=== PATIENT | female | born 1975 | race Caucasian/White ===

== ENCOUNTER 2021-12-02 14:16 | Emergency (ER) | payer OTHER, SELFPAY ==
--- NOTE | ~2021-12-02 | XR_ITS ---
EXAMINATION: XR NASAL BONES CLINICAL INFORMATION: Nasal pain after injury. COMPARISON: None TECHNIQUE: 3 views of the nasal bones were obtained. FINDINGS: No definite displaced nasal bone fractures. Visualized paranasal sinuses appear clear. No unexpected radiopaque foreign bodies. XR/XR nasal bones min 3V IMPRESSION: No definite displaced nasal bone fractures.
[2021-12-02 15:35] VITALS: BP 116/78; PULSE 90; RESP 18; TEMP 37.1; O2SAT 96; BMI 24.7
--- NOTE | 2021-12-02 16:25 | ED_ITS ---
HPI - General Adult General Chief complaint: General Medical Stated complaint: L side pain Time Seen by Provider: 12/02/21 16:25 History of Present Illness HPI narrative: Patient with 2 complaints main complaint is pain in the left trapezius left side of the neck and left upper back as well as left lower back that is worse with movement, no injury associated, no numbness no weakness no tingling no radiation of pain no changes to bowel or bladder Second complaint is she fell and banged her nose many weeks ago and still has pain when she touches the bridges for nose and is requesting an x-ray she has no trouble breathing and denies any congestion or illness now Related Data Previous Rx's Medication Instructions Recorded acetaminophen 500 mg tablet 1,000 mg PO QID PRN #30 tab 12/02/21 cyclobenzaprine 5 mg tablet 5 mg PO TID PRN #14 tab 12/02/21 oxycodone 5 mg tablet 5 mg PO Q6H PRN #10 tab 12/02/21 Allergies Allergy/AdvReac Type Severity Reaction Status Date / Time ibuprofen [From MOTRIN] Allergy Intermediate ABD PAIN Verified 12/02/21 15:35 [employer] Allergy Intermediate ABD PAIN Uncoded 05/21/20 18:32 Review of Systems Review of Systems: Positive for nose pain and back pain Negatives are no fever no chills no dizziness no weakness no headache no difficulty breathing or swallowing no nose bleeding no congestion no neck pain no numbness weakness or tingling no chest pain no abdominal pain no vomiting no burning with urination no incontinence no changes to bowel or bladder no radiation of pain no rash Yes all other systems are reviewed and are negative PMFSH Past Medical History Source: nursing notes reviewed Medical History (Updated 12/02/21 @ 17:55 by SKY Rosado) Asthma Bipolar 1 disorder Brain cyst Depression Nerve pain Pinched nerve in neck Social History Social History Advance Directives: No Patient : No Physical Exam ED Vital Signs: Vital Signs - 24 hr 12/02/21 15:35 Temperature 98.7 F Pulse Rate 90 Respiratory Rate 18 Blood Pressure 116/78 Pulse Oximetry 96 BMI result Body Mass Index 24.7 General appearance no acute distress Head is normocephalic atraumatic The nose there is no septal hematoma there is no obvious deformity there is some mild tenderness to the bridge of the nose Pupils equal round reactive to light extraocular motions are intact No other tenderness to any facial bones The neck is supple Respiratory no distress Abdomen soft nontender The back had left-sided trapezius and subscapular tenderness as well as left- sided low back soft tissue tenderness there was no midline tenderness anywhere, pain is easily reproduced with movement, skin was normal, no CVA tenderness Extremities is full range of motion x4 Neuro motor is 5/5 x4 and sensation is intact and symmetrical in all extremities Course Course Course Narrative: Patient had a negative nasal bones x-ray and is breathing fine through her nose with no sign of any infection or congestion The back exam was consistent with soft tissue muscle pain and she is discharged with the muscle relaxer and pain reliever, no neurologic deficits or changes to bowel or bladder Discharge Plan Discharge Clinical Impression: Back pain, Nose pain Patient Disposition: Home, Self-Care Additional Instructions: X-ray of her nose did not show any broken bone Back pain is likely from strain muscles in her back so we are writing for muscle relaxer and pain killer Follow for both complaints with primary doctor Return any time if worse Prescriptions: New acetaminophen 500 mg tablet 1,000 mg PO QID PRN (Reason: pain) Qty: 30 0RF cyclobenzaprine 5 mg tablet 5 mg PO TID PRN (Reason: muscle spasm) Qty: 14 0RF Rx Instructions: This medication may cause drowsiness so no driving for 8 hours after taking oxycodone 5 mg tablet 5 mg PO Q6H PRN (Reason: pain) Qty: 10 0RF Rx Instructions: Narcotic, no driving for 6 hours after taking this medication
== END 2021-12-02 18:30 | disposition home or self-care (01) ==
PROVIDERS: Emergency Provider Internal Medicine
DX: M54.6 Pain in thoracic spine (principal); M54.50 Low back pain, unspecified; J34.89 Other specified disorders of nose and nasal sinuses
CPT/HCPCS: 70160; 99283

== ENCOUNTER 2021-12-21 17:41 | Emergency (ER) | payer OTHER, SELFPAY ==
--- NOTE | ~2021-12-21 | XR_ITS ---
EXAMINATION: XR NASAL BONES CLINICAL INFORMATION: No swelling. Walked into wall COMPARISON: 12/02/2021 TECHNIQUE: 3 views of the nasal bones were obtained. FINDINGS: There is a nondisplaced hairline fracture through the distal nasal bone. There is associated soft tissue swelling in this location. Visualized sinuses are well aerated and unremarkable. No other acute bony abnormality seen. XR/XR nasal bones min 3V IMPRESSION: Nondisplaced hairline fracture through the nasal bones
[2021-12-21 18:15] VITALS: BP 135/65; PULSE 104; RESP 20; TEMP 36.8; O2SAT 99; BMI 24.5
--- NOTE | 2021-12-21 20:50 | ED.WOUNDLAC ---
HPI - Wound/Laceration General Chief Complaint: Wound/Laceration Stated Complaint: ? nose is broken Time Seen by Provider: 12/21/21 20:50 Source: patient Mode of arrival: ambulatory Limitations: no limitations History of Present Illness HPI narrative: 46 y/o female presents to the ER for evaluation of a possible broken nose. She reports walking out of the [employer] when she accidentally walked into a glass wall. She had immediate pain and swelling of her nose as well as a bloody nose on the left side, which has since stopped. She also has a small laceration to the bridge of her nose. She is not on anticoagulation. She reports a history of broken nose in the past and thinks she may broken it again. She is unsure when her last tetanus shot was. Onset (ago): minute(s) Location: face Place: other (Mall) Patient tetanus UTD: No Context: accidental Associated symptoms: pain Treatments prior to arrival: cold therapy Related Data Previous Rx's Medication Instructions Recorded acetaminophen 500 mg tablet 1,000 mg PO QID PRN #30 tab 12/02/21 cyclobenzaprine 5 mg tablet 5 mg PO TID PRN #14 tab 12/02/21 oxycodone 5 mg tablet 5 mg PO Q6H PRN #10 tab 12/02/21 oxycodone 5 mg tablet 5 mg PO Q8H PRN #6 tab 12/21/21 Allergies Allergy/AdvReac Type Severity Reaction Status Date / Time ibuprofen [From MOTRIN] Allergy Intermediate ABD PAIN Verified 12/02/21 15:35 [employer] Allergy Intermediate ABD PAIN Uncoded 05/21/20 18:32 Review of Systems Review of Systems: Constitutional: No Fever, No Chills ENT/Mouth: No dental pain, +nose pain, No ear pain, No facial pain Eyes: No Eye Pain, No vision changes, no swelling Gastrointestinal: No Nausea, No Vomiting Musculoskeletal: No joint pain, No Myalgias Skin: + Skin Lesions, No rash Neuro: No Weakness, No Numbness, No Dizziness, No Headache Psych: + Anxiety/Panic, No Depression Heme/Lymph: + Bruising, No Lymphadenopathy PMFSH Past Medical History Medical History (Updated 12/21/21 @ 21:41 by SKY Ramos) Asthma Bipolar 1 disorder Brain cyst Depression Nerve pain Pinched nerve in neck Social History Social History Advance Directives: No Advance Directives Information Provided: No Physical Exam Vital Signs: Vital Signs: Last Vital Signs Temp 98.2 F 12/21/21 18:15 Pulse 104 H 12/21/21 18:15 Resp 20 12/21/21 18:15 BP 135/65 12/21/21 18:15 Pulse Ox 99 12/21/21 18:15 BMI result Body Mass Index 24.5 Appearance: Alert. Oriented X3. No acute distress. Eyes: Pupils equal, round and reactive to light. ENT: Nose has mild generalized swelling and early ecchymosis to the middle and superior aspect, there are 2 superficial abrasions on the bridge of the nose with no active bleeding. Dried blood in the left there with no active epistaxis. No septal hematoma visualized. Nares are patent. Nose is not deformed. Pharynx normal. Neck: Normal inspection. Neck supple. No midline tenderness CVS: Normal heart rate and rhythm. Pulses normal. Respiratory: No respiratory distress. Breath sounds normal. Skin: Skin warm and dry. Normal skin color. Normal skin turgor. No rashes. Extremities: Normal inspection x4 Neuro: Oriented X 3. Grossly normal, nonfocal Course Course Course Narrative: 46-year-old female presents the ER with nose pain and bleeding after she walked into a glass wall with the mall earlier today. Epistaxis has resolved with no active bleeding. Two small supficial abrasions were closed with a Steri-Strip with good wound approximation. X-ray showing nondisplaced hairline fracture of the nasal bones. Discussed results and manage patient. Tdap given. Pain medication and ice was applied to the area with improvement in pain. She is stable for discharge home with supportive care and outpatient follow-up with ENT as needed. Critical Care Time Critical Care Time Critical Care Time: No Discharge Plan Discharge Clinical Impression: Broken nose Patient Disposition: Home, Self-Care Instructions: Nasal Fracture (ED) Additional Instructions: Your x-ray showed a nondisplaced hairline fracture through the nasal bones. Treatment is ice, anti-inflammatory and pain medications. You can follow-up with upholste[facility] lim[employer] and hearse as needed. Name and number below. If you develop new or worsening symptoms call 911 or come back to the ER for further evaluation. Prescriptions: New oxycodone 5 mg tablet 5 mg PO Q8H PRN (Reason: pain) Qty: 6 0RF No Action acetaminophen 500 mg tablet 1,000 mg PO QID PRN (Reason: pain) Qty: 30 0RF cyclobenzaprine 5 mg tablet 5 mg PO TID PRN (Reason: muscle spasm) Qty: 14 0RF Rx Instructions: This medication may cause drowsiness so no driving for 8 hours after taking oxycodone 5 mg tablet 5 mg PO Q6H PRN (Reason: pain) Qty: 10 0RF Rx Instructions: Narcotic, no driving for 6 hours after taking this medication Referrals: Amauri Estes [Physician] - 1 week (Broken nose) Interventions: ED Discharge Assessment Last Done: 12/21/21 22:07 Discharge Date/Time: 12/21/21 22:08
[2021-12-21] MEDS: oxyCODONE HCl Immed Release 5 MG TABLET PO (21:33)
[2021-12-21] MEDS: Diphth,Pertus(ACell),Tet Adult 0.5 ML SYRINGE IM (21:55)
== END 2021-12-21 22:08 | disposition home or self-care (01) ==
PROVIDERS: Emergency Provider Emergency Medicine Emergency Medical Services; PCP Nurse Practitioner Family
DX: S02.2XXA Fracture of nasal bones, initial encounter for closed fracture (principal); S00.31XA Abrasion of nose, initial encounter; R04.0 Epistaxis; Y29.XXXA Contact with blunt object, undetermined intent, initial encounter; Y93.9 Activity, unspecified; Y92.59 Other trade areas as the place of occurrence of the external cause; Y99.9 Unspecified external cause status; Z79.899 Other long term (current) drug therapy
CPT/HCPCS: 70160; 90471; 90715; 99284

== ENCOUNTER 2021-12-29 17:42 | Emergency (ER) | payer OTHER, SELFPAY ==
[2021-12-29 18:00] VITALS: BP 120/75; PULSE 90; RESP 18; TEMP 36.9; O2SAT 96; BMI 24.7
--- NOTE | 2021-12-29 19:09 | ED_ITS ---
HPI - General Adult General Chief complaint: General Medical Stated complaint: nose [ain Time Seen by Provider: 12/29/21 19:07 Source: patient Mode of arrival: ambulatory Limitations: no limitations History of Present Illness HPI narrative: 46-year-old female presents to ED for pain medication. Patient has diagnosed nasal fracture and finished her oxycodone and states need more pain medication. Patient cannot take NSAIDs. Related Data Previous Rx's Medication Instructions Recorded acetaminophen 500 mg tablet 1,000 mg PO QID PRN #30 tab 12/02/21 cyclobenzaprine 5 mg tablet 5 mg PO TID PRN #14 tab 12/02/21 oxycodone 5 mg tablet 5 mg PO Q6H PRN #10 tab 12/02/21 oxycodone 5 mg tablet 5 mg PO Q8H PRN #6 tab 12/21/21 oxycodone 5 mg capsule 5 mg PO TID PRN 3 Days #9 cap 12/29/21 Allergies Allergy/AdvReac Type Severity Reaction Status Date / Time ibuprofen [From MOTRIN] Allergy Intermediate ABD PAIN Verified 12/02/21 15:35 [employer] Allergy Intermediate ABD PAIN Uncoded 05/21/20 18:32 Review of Systems Review of Systems: Wants medication refill. Pain due to nasal fracture Yes all other systems are reviewed and are negative [facility] Past Medical History Medical History (Updated 12/30/21 @ 00:00 by Background Daemon) Asthma Bipolar 1 disorder Brain cyst Depression Nerve pain Pinched nerve in neck Social History Social History Advance Directives: No Advance Directives Information Provided: Yes Physical Exam ED Vital Signs: Vital Signs - 24 hr 12/29/21 18:00 Temperature 98.4 F Pulse Rate 90 Respiratory Rate 18 Blood Pressure 120/75 Pulse Oximetry 96 BMI result Body Mass Index 24.7 Const General: cooperative, healthy appearing, comfortable, no acute distress, well developed, alert, awake and Physically active Orientation/consciousness: oriented to time and patient oriented x3 HENMT Head: Yes normal to inspection, Yes No palpable skull fracture present, Yes normocephalic, Yes atraumatic and No abrasion Head images: 1. Tenderness on palpation. Negative for any erythema, pus drainage, or ecchymosis. positive for swelling due to fracture. patient states swelling has improved. Eyes General: appearance normal, both eyes and all related structures Neck Neck: Yes normal visual inspection, Yes full ROM, Yes no lymphadenopathy, Yes no meningeal signs, Yes trachea midline, Yes supple and No anterior neck swelling Chest Chest palpation & inspection: normal inspection of the chest and normal palpation of entire chest wall Resp Effort & Inspection: normal respiratory effort and able to speak in complete sentences Auscultation: clear to auscultation bilaterally Cardio Jugular venous distension: no JVD Heart sounds: S1 normal heart sound present and S2 normal heart sound present GI Inspection: Yes normal to inspection and No abdominal wall ecchymosis Palpation (GI): Soft to palpation, not firm, nontender, no guarding and not rigid General: No CVA tenderness and Yes no CVA tenderness Back/Spine/Pelvis Back: no CVA tenderness, No CVA tenderness and No back tenderness Skin General skin exam: no rashes or lesions noted and elasticity normal Neuro General: oriented to time, patient oriented x3, gait normal and no meningeal signs Cranial nerves: Yes CN's II-XII intact bilaterally Extrem General: Yes normal to inspection and Yes full ROM Psych Appearance: grossly normal, well kempt and not disheveled Course Course Course Narrative: Patient is well-appearing Reevaluation(s) Reevaluation #1: Will discharge with another 3 days of oxycodone. Patient has scheduled follow- up with specialists on January 15 for her nose Time: 19:31 Medical Decision Making [facility] Narrative Medical decision making narrative: Medication refill Discharge Plan Discharge Clinical Impression: Medication refill Patient Disposition: Home, Self-Care Instructions: Medicine Refill (ED) Additional Instructions: Please follow-up with specialists for nasal fracture. You will be prescribed another short course of oxycodone. Return to the ED for nasal swelling, redness, pus discharge, foul odor, fever, chills, headache, bluish black discoloration, or any other concerning symptoms. Prescriptions: New oxycodone 5 mg capsule 5 mg PO TID PRN (Reason: pain) 3 Days Qty: 9 0RF No Action acetaminophen 500 mg tablet 1,000 mg PO QID PRN (Reason: pain) Qty: 30 0RF cyclobenzaprine 5 mg tablet 5 mg PO TID PRN (Reason: muscle spasm) Qty: 14 0RF Rx Instructions: This medication may cause drowsiness so no driving for 8 hours after taking oxycodone 5 mg tablet 5 mg PO Q6H PRN (Reason: pain) Qty: 10 0RF Rx Instructions: Narcotic, no driving for 6 hours after taking this medication oxycodone 5 mg tablet 5 mg PO Q8H PRN (Reason: pain) Qty: 6 0RF Stand Alone Forms: Work/School Release Interventions: ED Discharge Assessment Last Done: 12/29/21 19:45 Discharge Date/Time: 12/29/21 19:46 Print Language: Upper Sorbian
[2021-12-29] MEDS: oxyCODONE HCl Immed Release 5 MG TABLET PO (19:41)
== END 2021-12-29 19:46 | disposition home or self-care (01) ==
PROVIDERS: Emergency Provider Emergency Medicine; PCP Nurse Practitioner Family
DX: Z76.0 Encounter for issue of repeat prescription (principal); S02.2XXD Fracture of nasal bones, subsequent encounter for fracture with routine healing; S06.9X0D Unspecified intracranial injury without loss of consciousness, subsequent encounter; X58.XXXD Exposure to other specified factors, subsequent encounter; J45.909 Unspecified asthma, uncomplicated
CPT/HCPCS: 99283

== ENCOUNTER 2022-01-03 11:00 | Emergency (ER) | payer OTHER, SELFPAY ==
--- NOTE | ~2022-01-03 | XR_ITS ---
EXAMINATION: XR WRIST-RIGHT CLINICAL INFORMATION: Right fourth, fifth digit pain. COMPARISON: None TECHNIQUE: 4 views of the right wrist including scaphoid view. FINDINGS: The bony alignments are intact. The cortices are intact. Articular margins, joint space appear unremarkable. The soft tissues are unremarkable. XR/XR hand wrist RT IMPRESSION: No radiographic evidence of any displaced fracture, subluxation or dislocation or radiopaque foreign bodies present.
[2022-01-03 12:11] VITALS: BP 125/86; PULSE 82; RESP 16; O2SAT 98; BMI 23.8
--- NOTE | 2022-01-03 13:24 | ED.EXTPRO ---
HPI - Extremity Problem General Chief complaint: Extremity Injury, Upper Stated complaint: pain in right hand Time Seen by Provider: 01/03/22 12:40 Source: patient Mode of arrival: ambulatory History of Present Illness HPI Narrative: 46-year-old female with a past medical history of asthma, bipolar, depression, presenting to the ED complaining of atraumatic right hand pain x2 days. Denies known injury, trauma, fall, numbness, tingling, weakness, fever MD Complaint: extremity pain Onset (ago): day(s) Related Data Previous Rx's Medication Instructions Recorded acetaminophen 500 mg tablet 1,000 mg PO QID PRN #30 tab 12/02/21 cyclobenzaprine 5 mg tablet 5 mg PO TID PRN #14 tab 12/02/21 oxycodone 5 mg tablet 5 mg PO Q6H PRN #10 tab 12/02/21 oxycodone 5 mg tablet 5 mg PO Q8H PRN #6 tab 12/21/21 oxycodone 5 mg capsule 5 mg PO TID PRN 3 Days #9 cap 12/29/21 Allergies Allergy/AdvReac Type Severity Reaction Status Date / Time ibuprofen [From MOTRIN] Allergy Intermediate ABD PAIN Verified 12/02/21 15:35 [employer] Allergy Intermediate ABD PAIN Uncoded 05/21/20 18:32 Review of Systems Review of Systems: Constitutional: No Fever, No Chills ENT/Mouth: No Ear Pain, No Nasal Congestion, No sore throat, No Rhinorrhea, No Swallowing Difficulty Cardiovascular: No Chest Pain, No SOB Respiratory: No Cough Gastrointestinal: No Nausea, No Vomiting, No Diarrhea, No Constipation, No Abdominal pain Genitourinary:, No Dysuria, No Urinary Frequency, No Hematuria, No Flank Pain Musculoskeletal: + joint pain, No Myalgias, No Joint Swelling Skin: No Skin Lesions, No rash Neuro: No Weakness, No Numbness, No Paresthesias Yes all other systems are reviewed and are negative PMFSH Past Medical History Attestation statement: The following information was validated with the patient. Medical History Asthma Bipolar 1 disorder Brain cyst Depression Nerve pain Pinched nerve in neck Social History Social History Advance Directives: No Advance Directives Information Provided: No Patient : No Physical Exam Vital Signs: Vital Signs: Last Vital Signs Pulse 82 01/03/22 12:11 Resp 16 01/03/22 12:11 BP 125/86 01/03/22 12:11 Pulse Ox 98 01/03/22 12:11 BMI result Body Mass Index 23.8 Const: General: cooperative, healthy appearing, no acute distress, alert and awake Orientation/consciousness: patient oriented x3 Limitations: no limitations HEENT: Head: Yes normal to inspection and Yes atraumatic Ears: hearing grossly normal bilaterally General nose exam: Normal external nose present Face and sinus: Yes normal facial exam Eyes: General: appearance normal, both eyes and all related structures EOM: EOMs intact bilaterally Neck: Neck: Yes normal visual inspection and Yes no meningeal signs Resp: Effort & Inspection: normal respiratory effort and no respiratory distress Cardio: Rate: regular rate Heart sounds: S1 normal heart sound present and S2 normal heart sound present Peripheral pulses: radial pulses present Skin: General skin exam: no rashes or lesions noted Rashes: no rashes Wounds: no wounds Neuro: General: patient oriented x3, tone normal and no meningeal signs Gait exam (Neuro): Normal gait present Extrem: Other: Right hand without noted deformity, no erythema, no ecchymosis. + tenderness to palpation to 4th and 5th metacarpals. No snuffbox tenderness or wrist tenderness. Full range of motion to digits intact, thumb to finger opposition intact. Neurovascularly intact General: Yes normal to inspection Course Course Course Narrative: XR hand wrist RT IMPRESSION: No radiographic evidence of any displaced fracture, subluxation or dislocation or radiopaque foreign bodies present.? > results discussed with patient including worrisome signs and symptoms and strict return precautions Discharge Plan Discharge Clinical Impression: Hand pain, right Patient Disposition: Home, Self-Care Instructions: Arthralgia (ED) Additional Instructions: Your x-ray does not show any fracture. Please ice and elevate your hand. Take Tylenol Motrin for pain and swelling. Follow up with her doctor Prescriptions: No Action oxycodone 5 mg capsule 5 mg PO TID PRN (Reason: pain) 3 Days Qty: 9 0RF acetaminophen 500 mg tablet 1,000 mg PO QID PRN (Reason: pain) Qty: 30 0RF cyclobenzaprine 5 mg tablet 5 mg PO TID PRN (Reason: muscle spasm) Qty: 14 0RF Rx Instructions: This medication may cause drowsiness so no driving for 8 hours after taking oxycodone 5 mg tablet 5 mg PO Q6H PRN (Reason: pain) Qty: 10 0RF Rx Instructions: Narcotic, no driving for 6 hours after taking this medication oxycodone 5 mg tablet 5 mg PO Q8H PRN (Reason: pain) Qty: 6 0RF Referrals: Physician,Unknown J [Primary Care Provider] -
== END 2022-01-03 14:25 | disposition home or self-care (01) ==
PROVIDERS: Emergency Provider Emergency Medicine
DX: M79.641 Pain in right hand (principal); M25.531 Pain in right wrist; Z79.899 Other long term (current) drug therapy
CPT/HCPCS: 73110; 73130; 99283

== ENCOUNTER 2022-05-20 10:13 | Emergency (ER) | payer OTHER, SELFPAY ==
--- NOTE | ~2022-05-20 | XR_ITS ---
EXAMINATION: XR FOOT, LEFT CLINICAL INFORMATION: Evaluate for foreign body COMPARISON: None TECHNIQUE: 3 views of the left foot. FINDINGS: Normal exam. Bones have normal alignment throughout the foot and joint spaces are maintained. No acute fracture or subluxation. No focal soft tissue swelling or soft tissue gas. Although no radiopaque foreign bodies are identified within the foot, if there is a high clinical suspicion, ultrasound evaluation of superficial tissues in the region of concern may be performed, as well. XR/XR foot LT min 3V IMPRESSION: Normal left foot. No evidence of radiopaque foreign body.
[2022-05-20 10:23] VITALS: BP 121/77; PULSE 86; RESP 17; TEMP 36.6; O2SAT 98; BMI 24.5
--- NOTE | 2022-05-20 11:52 | ED_ITS ---
HPI - General Adult General Chief complaint: General Medical Stated complaint: piece of glass in foot Time Seen by Provider: 05/20/22 11:47 Source: patient Mode of arrival: ambulatory Limitations: no limitations History of Present Illness HPI narrative: Patient presents emergency department for evaluation of pain to the ball of her right foot. Reports that she stepped on glass 2 days ago, the glass was removed by her significant other. However she still continues to have pain when stepping on her foot believes there may be a piece of retained glass. No redness, swelling, wound, drainage, fevers, chills Related Data Previous Rx's Medication Instructions Recorded acetaminophen 500 mg tablet 1,000 mg PO QID PRN pain #30 tabs 12/02/21 cyclobenzaprine 5 mg tablet 5 mg PO TID PRN muscle spasm #14 12/02/21 tabs oxycodone 5 mg tablet 5 mg PO Q6H PRN pain #10 tabs 12/02/21 oxycodone 5 mg tablet 5 mg PO Q8H PRN pain #6 tabs 12/21/21 oxycodone 5 mg capsule 5 mg PO TID PRN pain 3 days #9 caps 12/29/21 Allergies Allergy/AdvReac Type Severity Reaction Status Date / Time ibuprofen [From MOTRIN] Allergy Intermediate ABD PAIN Verified 12/02/21 15:35 DAIRY PRODUCTS Allergy Intermediate ABD PAIN Uncoded 05/21/20 18:32 Review of Systems Review of Systems: Musculoskeletal: Positive foot pain as noted in HPI. Yes all other systems are reviewed and are negative PMFSH Past Medical History Attestation statement: The following information was validated with the patient. Source: old records reviewed Medical History Asthma Bipolar 1 disorder Brain cyst Depression Nerve pain Pinched nerve in neck Social History Social History Advance Directives: No Physical Exam ED Vital Signs: Vital Signs - 24 hr 05/20/22 10:23 Temperature 98 F Pulse Rate 86 Respiratory Rate 17 Blood Pressure 121/77 Pulse Oximetry 98 Oxygen Delivery Method Room Air BMI result Body Mass Index 24.5 Appearance: Alert.?Oriented to person, place and time. No acute distress.?No rmal affect. CVS: Heart sounds normal. Normal heart rate and rhythm.? Pulses normal.?? Respiratory: No respiratory distress.? Lung sounds clear to auscultation bilaterally?? Abdomen: Soft and non-tender. ? Skin: Skin warm and dry.? Normal skin color.? Extremities: No lower extremity edema.? Right plantar foot with no wound/lesion, redness,, swelling, evidence of foreign body Neuro: Moves all extremities spontaneously. Sensation intact bilaterally. Ambulates with normal steady gait. Course Course Course Narrative: Patient is a 46-year-old female who presents emergency department for evaluation of retained foreign body to the right foot. XR reveals no radiopaque foreign body, or acute fracture. She is well appearing. Ambulatory with a steady gait. Advised acetaminophen/ibuprofen as needed for pain. Worsening signs and symptoms to return back to emergency department for. Patient discharged home in stable condition. Medical Decision Making Medical Records Medical records reviewed: Yes I reviewed the patient's medical records. Imaging Data xr foot: Radiologist's impression: XR/XR foot LT min 3V IMPRESSION: Normal left foot. No evidence of radiopaque foreign? Discharge Plan Discharge Clinical Impression: Acute foot pain Patient Disposition: Home, Self-Care Additional Instructions: You can take ibuprofen 200 mg, 3 tablets (600mg) every 6-8 hours as needed for pain, in addition to Tylenol 500 mg, 2 tablets (1,000mg) every 4-6 hours as needed for pain, but not to exceed 3 doses daily (3,000mg).? Return to the emergency department with any new or worsening symptoms or concerns Prescriptions: No Action oxycodone 5 mg capsule 5 mg PO TID PRN (Reason: pain) 3 Days Qty: 9 0RF acetaminophen 500 mg tablet 1,000 mg PO QID PRN (Reason: pain) Qty: 30 0RF cyclobenzaprine 5 mg tablet 5 mg PO TID PRN (Reason: muscle spasm) Qty: 14 0RF Rx Instructions: This medication may cause drowsiness so no driving for 8 hours after taking oxycodone 5 mg tablet 5 mg PO Q6H PRN (Reason: pain) Qty: 10 0RF Rx Instructions: Narcotic, no driving for 6 hours after taking this medication oxycodone 5 mg tablet 5 mg PO Q8H PRN (Reason: pain) Qty: 6 0RF
== END 2022-05-20 12:13 | disposition home or self-care (01) ==
PROVIDERS: Emergency Provider Emergency Medicine Emergency Medical Services
DX: M79.672 Pain in left foot (principal)
CPT/HCPCS: 73630; 99282; 99283

== ENCOUNTER 2025-05-27 15:05 | Emergency (ER) | payer OTHER, SELFPAY ==
--- NOTE | ~2025-05-27 | XR_ITS ---
EXAMINATION: XR LUMBOSACRAL SPINE CLINICAL INFORMATION: back pain rad down RLE COMPARISON: X-ray dated April 24, 2013 is not available on PACS. TECHNIQUE: AP and lateral views. FINDINGS: Levoconvex curvature apex at L2-3. No acute cortical disruption or gross malalignment. No lytic or blastic lesions. XR/XR lumbar spine 2-3V IMPRESSION: Levoconvex scoliosis, mild to moderate. Electronically signed by: Evens Ohara MD 05/27/2025 03:38 PM EDT
--- NOTE | 2025-05-27 15:12 | ED_ITS ---
HPI - Back Pain/Injury General Chief Complaint: Back Pain/Injury Stated Complaint: Lower back pain, arthritis flare up Time Seen by Provider: 05/27/25 16:05 Source: patient Mode of arrival: ambulatory Limitations: no limitations History of Present Illness ED Provider: HALEY BECKER PA-C HPI Narrative: 49 year old female with pmhx significant for arthritis presents to the ED today for evaluation of acute on chronic lower back pain. Reports pain radiation from her lower back into her right thigh to her knee. She has been taking tramadol and flexeril for this however recently ran out of these medications. Reports she finds little relief with these medications. Denies blunt injury or trauma. Denies numbness/tingling/weakness to the RLE. Denies saddle anesthesia, bowel or bladder incontinence or retention, dysuria, hematuria. Related Data Previous Rx's ?Medication ?Instructions ?Recorded acetaminophen 500 mg tablet 1,000 mg (2 x 500 mg) PO Q ID PRN 12/02/21 pain #30 tabs cyclobenzaprine 5 mg tablet 5 mg PO TID PRN muscle spa sm #14 12/02/21 tabs oxycodone 5 mg tablet 5 mg PO Q6H PRN pain #10 tab s 12/02/21 oxycodone 5 mg tablet 5 mg PO Q8H PRN pain #6 tabs 12/21/21 oxycodone 5 mg capsule 5 mg PO TID PRN pain 3 days #9 caps 12/29/21 lidocaine 5 % topical patch 1 patch topical DAILY #15 ea 05/27/25 (Lidoderm) oxycodone 5 mg tablet 5 mg PO Q8H PRN pain (scale score 05/27/25 7-10) 3 days #9 tabs Allergies Allergy/AdvReac Type Severity Reaction Status Date / Time ibuprofen (From MOTRIN) Allergy Intermediate ABD PAIN Verified 05/27/25 15:17 DAIRY PRODUCTS Allergy Intermediate ABD PAIN Uncoded 05/27/25 15:17 Review of Systems Review of Systems: Yes all other systems are reviewed and are negative PMFSH Past Medical History Attestation statement: The following information was validated with the patient. Source: old records reviewed and nursing notes reviewed Medical History Nerve pain Pinched nerve in neck Brain cyst Bipolar 1 disorder Depression Asthma Social History Social History Advance Directives: No Advance Directives Information Provided: No Do you have a plan to hurt others: No Plan Physical Exam Vital Signs: Vital Signs: Last Vital Signs Temp 98 F 05/27/25 16:45 Pulse 88 05/27/25 16:45 Resp 18 05/27/25 16:45 BP 125/72 05/27/25 16:45 Pulse Ox 98 05/27/25 16:45 O2 Del Method Room Air 05/27/25 16:45 BMI result Body Mass Index 24.6 vital signs stable General: Well appearing, in no acute distress. Skin: Warm, dry, intact. No rashes or lesions. Head: Normocephalic, atraumatic. EENT: Hearing is intact b/l. Conjunctiva clear. Sclera is anicteric. PERRLA. EOM intact. Moist mucous membranes.? Neck: Supple without LAD Cardiac: Chest wall symmetric. RRR Lungs: Normal respiratory effort without accessory muscle use. CTA bilaterally Abdomen: Soft, non-tender, non-distended. No rebound tenderness or guarding. Positive BS x4. no cvat b/l. Back: No midline spinous tenderness or step-off deformity. There is bilateral paraspinal muscle tenderness to palpation. No overlying skin changes. No fluctuance, warmth. Ext: Upper and lower extremities atraumatic, without tenderness, deformity, swelling or erythema Neuro: AOx3. Normal speech. Strength 5/5 intact throughout. No saddle anesthesia. Sensation intact to light touch. NV intact distally. Ambulating with steady gait Course Course Course Narrative: Exam consistent with lumbar radiculopathy. X-rays do not demonstrate acute fracture. Will send patient home with prescription for oxycodone. Advised outpatient follow up. Patient has remained stable throughout ED visit today. Discussed worrisome signs and symptoms and when to return to the ED. All questions answered at this time. Patient is agreeable with disposition and stable for discharge. Medical Decision Making Medical Decision Making MDM Narrative: 49 year old female with pmhx significant for arthritis presents to the ED today for evaluation of acute on chronic lower back pain. vital signs are stable. she is well appearing, in NAD. on exam, No midline spinous tenderness or step-off deformity. There is bilateral paraspinal muscle tenderness to palpation. No overlying skin changes. No fluctuance, warmth. NV intact distally. ambulating with steady gait. There are no back pain red flag symptoms. Her exam is consistent with lumbar radiculopathy. I have also considered fracture, MSK sprain/strain, arthritis. Unlikely cauda equina, Guillain-[place], epidural abscess, cord compression. Unlikely renal colic, nephrolithiasis. Plan for xrays and re-evaluation. Differential Diagnosis Differential Diagnoses: The differential diagnosis associated with the presentation includes as above. Admission/Observation not indicated. Independent Interpretation I performed an independent interpretation of an: Plain X-Ray Interpretation: xr without compression fracture Radiology Impression Discussion of test interpretation with radiology: I have reviewed the radiologist's reading. Radiologist Impression: Procedure(s): XR lumbar spine 2-3V Accession Number(s): [id number] cc: Physician,Unknown ; Haley Becker~ Reason for Exam: back pain rad down RLE EXAMINATION: XR LUMBOSACRAL SPINE CLINICAL INFORMATION: back pain rad down RLE COMPARISON: X-ray dated April 24, 2013 is not available on PACS. TECHNIQUE: AP and lateral views. FINDINGS: Levoconvex curvature apex at L2-3. No acute cortical disruption or gross malalignment. No lytic or blastic lesions. XR/XR lumbar spine 2-3V IMPRESSION: Levoconvex scoliosis, mild to moderate. Electronically signed by: Evens Ohara MD 05/27/2025 03:38 PM EDT External Record Review External record reviewed: Inpatient record Prescription Management I considered prescription management with: Pain Medication Chronic Conditions Patient?s care impacted by: Other (chronic back pain) Social Determinants Patient?s care significantly limited by Social Determinants of Health including: Other Social Determinant of Health Critical Care Time Critical Care Time Critical Care Time: No Discharge Plan Discharge Clinical Impression: Lumbar radiculopathy Patient Disposition: Home, Self-Care Instructions: Lumbar Radiculopathy (ED), Lower Back Exercises (ED) Additional Instructions: You were evaluated in the Emergency Department today for your back pain.? Your evaluation did not show signs of medical conditions requiring emergent intervention at this time. Avoid bending, lifting, or twisting. Use ice several times per day for 20 minutes at a time for the next 48 hours and then change to heat. I recommend you take 600mg ibuprofen every 6 hours or tylenol 650mg every 6 hours as needed for pain. If needed, you can alternate these medications so that you take one medication every 3 hours. For example, at noon take ibuprofen, then at 3pm take tylenol, then at 6pm take ibuprofen. I am sending oxycodone, a controlled pain medication, to your pharmacy for you to take for breakthrough pain control. Please use this with caution as opioid pain medications have addictive properties. DO NOT TAKE THIS WITH TRAMADOL. I have also provided you with Narcan as accidental overdoses on oxycodone can occur. Opioid pain medications can often cause constipation. I recommend taking this with an over the counter laxative and/or stool softener to help move your bowels. Lidoderm patches are numbing patches. Apply to painful areas. Please schedule an appointment for follow-up with your primary care provider this week for further evaluation of your symptoms. Return to the Emergency Department if you experience worsening back pain, difficulty walking, fevers, numbness, tingling, incontinence, or any other concerning symptoms. In the case of an emergency call 911. Prescriptions: New oxycodone 5 mg tablet 5 mg PO Q8H PRN (Reason: pain (scale score 7-10)) 3 Days Qty: 9 0RF Rx Instructions: Partial Fill upon patient request. lidocaine [Lidoderm] 5 % adhesive patch,medicated 1 patch topical DAILY Qty: 15 0RF Rx Instructions: leave on most painful area for up to 12 hrs No Action oxycodone 5 mg capsule 5 mg PO TID PRN (Reason: pain) 3 Days Qty: 9 0RF acetaminophen 500 mg tablet 1,000 mg PO QID PRN (Reason: pain) Qty: 30 0RF cyclobenzaprine 5 mg tablet 5 mg PO TID PRN (Reason: muscle spasm) Qty: 14 0RF Rx Instructions: This medication may cause drowsiness so no driving for 8 hours after taking oxycodone 5 mg tablet 5 mg PO Q6H PRN (Reason: pain) Qty: 10 0RF Rx Instructions: Narcotic, no driving for 6 hours after taking this medication oxycodone 5 mg tablet 5 mg PO Q8H PRN (Reason: pain) Qty: 6 0RF Referrals: Physician,Unknown J [Primary Care Provider, Medical] Interventions: ED Discharge Assessment Last Done: 05/27/25 16:45 Discharge Date/Time: 05/27/25 16:45 Print Language: Kuwaiti
[2025-05-27 15:16] VITALS: BP 125/72; PULSE 88; RESP 18; TEMP 36.6; O2SAT 98; BMI 24.6
[2025-05-27 16:45] VITALS: BP 125/72; PULSE 88; RESP 18; TEMP 36.6; O2SAT 98
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
== END 2025-05-27 16:45 | disposition home or self-care (01) ==
PROVIDERS: Emergency Provider Emergency Medicine
DX: M54.16 Radiculopathy, lumbar region (principal); M54.50 Low back pain, unspecified; M25.561 Pain in right knee; M79.651 Pain in right thigh
CPT/HCPCS: 72100; 99282; 99283

== ENCOUNTER → 2025-05-27 15:13 | Outpatient (BNV) | payer OTHER, SELFPAY | PROVIDERS: Visit Provider Radiology Diagnostic Radiology | DX: M54.41 Lumbago with sciatica, right side (principal) | CPT/HCPCS: 72100 ==

== ENCOUNTER 2025-08-12 13:45 | Emergency (ER) | payer OTHER, SELFPAY ==
[2025-08-12 14:07] VITALS: BP 153/85; PULSE 93; RESP 18; TEMP 36.3; O2SAT 97; BMI 25.0
--- NOTE | 2025-08-12 14:34 | ED.GENADULT ---
HPI - General Adult General Chief complaint: General Medical Stated complaint: arm pain Time Seen by Provider: 08/12/25 14:11 Source: patient Mode of arrival: ambulatory Limitations: no limitations History of Present Illness ED Provider: Moisés Gallagher HPI narrative: 49-year-old female with past medical history of cervical radiculopathy presents to the ED for oxycodone refill for chronic neck pain going down arms. Patient presents to ED for medication refill for arthritic pain. Patient states she takes oxycodone per her PCP was not able to be reached. Patient states no other complaints Related Data Previous Rx's ?Medication ?Instructions ?Recorded acetaminophen 500 mg tablet 1,000 mg (2 x 500 mg) PO QID PRN 12/02/21 pain #30 tabs cyclobenzaprine 5 mg tablet 5 mg PO TID PRN muscle spasm #14 12/02/21 tabs oxycodone 5 mg tablet 5 mg PO Q6H PRN pain #10 tabs 12/02/21 oxycodone 5 mg tablet 5 mg PO Q8H PRN pain #6 tabs 12/21/21 oxycodone 5 mg capsule 5 mg PO TID PRN pain 3 days #9 caps 12/29/21 lidocaine 5 % topical patch 1 patch topical DAILY #15 ea 05/27/25 (Lidoderm) oxycodone 5 mg tablet 5 mg PO Q8H PRN pain (scale score 05/27/25 7-10) 3 days #9 tabs oxycodone 5 mg tablet 5 mg PO TID PRN pain #12 tabs 08/12/25 Allergies Allergy/AdvReac Type Severity Reaction Status Date / Time ibuprofen (From MOTRIN) Allergy Intermediate ABD PAIN Verified 08/12/25 14:09 [employer] Allergy Intermediate ABD PAIN Uncoded 05/27/25 15:17 Review of Systems Review of Systems: Medication refill Yes all other systems are reviewed and are negative PMFSH Past Medical History Medical History Nerve pain Pinched nerve in neck Brain cyst Bipolar 1 disorder Depression Asthma Social History Social History Advance Directives: No Advance Directives Information Provided: Yes Physical Exam ED Vital Signs: Vital Signs - 24 hr 08/12/25 14:07 Temperature 97.3 F Pulse Rate 93 Respiratory Rate 18 Blood Pressure 153/85 H Pulse Oximetry 97 Oxygen Delivery Method Room Air BMI result Body Mass Index 25.0 Const General: cooperative, healthy appearing, comfortable, no acute distress and well developed Orientation/consciousness: patient oriented x3 [facility] Head: Yes normal to inspection, Yes No palpable skull fracture present, Yes normocephalic and Yes atraumatic Eyes General: appearance normal, both eyes and all related structures Neck Neck: Yes normal visual inspection, Yes full ROM, Yes no lymphadenopathy, Yes no meningeal signs, Yes trachea midline, Yes supple, No anterior neck swelling and No tender Chest Chest palpation & inspection: normal inspection of the chest and normal palpation of entire chest wall Resp Effort & Inspection: normal respiratory effort and able to speak in complete sentences Auscultation: clear to auscultation bilaterally Cardio Jugular venous distension: no JVD Heart sounds: S1 normal heart sound present and S2 normal heart sound present GI Inspection: Yes normal to inspection Palpation (GI): Soft to palpation, not firm, nontender, no guarding and not rigid General: Yes no CVA tenderness Back/Spine/Pelvis Back: no CVA tenderness and No back tenderness Skin General skin exam: no rashes or lesions noted, elasticity normal and turgor normal Neuro General: patient oriented x3, gait normal, tone normal, moves all extremities, Normal light touch and pain sensation, no meningeal signs, no focal motor deficits, CN's II-XI intact bilaterally and normal sensation to monofilament Extrem General: Yes normal to inspection, Yes full ROM and Yes capillary refill normal Psych Appearance: grossly normal, well kempt and not disheveled Medical Decision Making Medical Decision Making MDM Narrative: 49-year-old female presents to ED for medication refill for oxycodone for chronic arthritis pain. Patient states no new symptoms or physical complaints. Patient just chronic arthritic pain. Patient denies any recent trauma chest pain shortness of breath abdominal pain or weakness. Not suspecting meningitis, stroke, carotid/veterbral dissection, brain bleed, encephealitits, or any other life trehatening etiology. Differential Diagnosis Differential Diagnoses: The differential diagnosis associated with the presentation includes (Medication refill) Admission/Observation Consideration of admission/observation: Escalation of care including admission/observation considered Independent Historian Clinical information obtained from an independent historian. History obtained from or confirmed by: Other (Patient is) Prescription Management I considered prescription management with: Pain Medication Discharge Plan Discharge Clinical Impression: Medication refill, Chronic pain, Arthritis Patient Disposition: Home, Self-Care Instructions: Osteoarthritis (ED), Chronic Pain (ED), Medicine Refill (ED) Additional Instructions: You will be given short course of oxycodone. Return to the ED for any physical complaint. Prescriptions: New oxycodone 5 mg tablet 5 mg PO TID PRN (Reason: pain) Qty: 12 0RF Rx Instructions: Partial Fill upon patient request. No Action oxycodone 5 mg capsule 5 mg PO TID PRN (Reason: pain) 3 Days Qty: 9 0RF acetaminophen 500 mg tablet 1,000 mg PO QID PRN (Reason: pain) Qty: 30 0RF cyclobenzaprine 5 mg tablet 5 mg PO TID PRN (Reason: muscle spasm) Qty: 14 0RF Rx Instructions: This medication may cause drowsiness so no driving for 8 hours after taking oxycodone 5 mg tablet 5 mg PO Q6H PRN (Reason: pain) Qty: 10 0RF Rx Instructions: Narcotic, no driving for 6 hours after taking this medication oxycodone 5 mg tablet 5 mg PO Q8H PRN (Reason: pain) Qty: 6 0RF oxycodone 5 mg tablet 5 mg PO Q8H PRN (Reason: pain (scale score 7-10)) 3 Days Qty: 9 0RF Rx Instructions: Partial Fill upon patient request. lidocaine [Lidoderm] 5 % adhesive patch,medicated 1 patch topical DAILY Qty: 15 0RF Rx Instructions: leave on most painful area for up to 12 hrs Referrals: Deepa Colbert NP [Primary Care Provider, Medical] - 2 days Referral Note: Medication refill for chronic pain Clinical Impression: Medication refill Stand Alone Forms: Work/School Release Interventions: ED Discharge Assessment Last Done: 08/12/25 15:57 Discharge Date/Time: 08/12/25 15:57 Print Language: Croatian
[2025-08-12 15:57] VITALS: BP 153/85; PULSE 93; RESP 18; TEMP 36.3; O2SAT 97
--- OUTSIDE RECORDS SUMMARY | 2025-08-12 20:11 | XMS_ITS | Encounter Summary ---
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 Role Phone Physician, No Pcp Primary Care Provider Unavaila ble Encounter Details Date Type Department Care Team (Late st Contact Info) Description 06/26/2025 Results Follow-Up [facility] Emergency [address] [place] [address] Karen Suarez RN Social History Tobacco Use Types Packs/Day Years Used Date Smoking Tobacco: Never Cigarettes Smokeless Tobacco: Never Alcohol Use Standard Drinks/Week Comments No 0 (1 standard drink = 0.6 oz pur e alcohol) Comments Unknown Sex and Gender Information Value Date Recorded Sex Assigned at Not on file Legal Sex Female 5:43 AM EST Gender Identity Not on file Sexual Orientation Not on file documented as of this encounter Functional Status * Are you deaf or do you have serious difficulty hearing? Answer Date of Assessment Author No 10/05/2024 1:50 PM Freeman RN * Are you blind or do you have serious difficulty seeing, even when wearing glasses? Answer Date of Assessment Author No 10/05/2024 1:50 PM Freeman RN * Do you have serious difficulty walking or climbing stairs? Answer Date of Assessment Author No 10/05/2024 1:50 PM Freeman RN * Do you have serious difficulty dressing or bathing? Answer Date of Assessment Author No 10/05/2024 1:50 PM Freeman RN * Because of a physical, mental, or emotional condition, do you have serious difficulty doing errandsalone such as visiting the doctor? Answer Date of Assessment Author No 10/05/2024 1:50 PM EST Reagan, De bra, RN documented as of this encounter Mental Status * Because of a physical, mental, or emotional condition, do you have serious difficulty concentrating, remembering, or making decisions? (5 years old or older) Answer Entry Date Author No 10/05/2024 1:50 PM EST Aleman RN documented in this encounter Progress Notes * Karen Suarez RN - 06/26/2025 11:38 AM EDT Per [facility]- appropriate treatment provided documented in this encounter Plan of Treatment Upcoming Encounters Date Type Department Care Team (Late st Contact Info) Description 09/02/2025 3:45 PM EST Appointment [facility] CT Scan [address] [place] [id number] documented as of this encounter Visit Diagnoses Not on filedocumented in this encounter Care Teams Gasoline Plant Operator Relationship Specialty Start Date End Date Physician, No Pcp PCP - General 04/21/25 documented as of this encounter
--- OUTSIDE RECORDS SUMMARY | 2025-08-12 20:11 | XMS_ITS | Clinical Summary ---
Author Organization [address] [place] [address] [facility] Address [address] [place] [address] Phone Care Team Providers Care Senior Painter Name Role Phone Physician, No Pcp Primary [...] needed for muscle spasms for up to 10 days. 20 tablet 5 Active Active Problems Problem Noted Date Diagnosed Date Colloid cyst of third ventricle 10/15/2021 Overview (08/05/2024): Last Assessment & Plan: [...] Encounters Date Type Department Care Team Description 08/04/2025 Telephone Neurosurgery [facility] [address] [facility] [address] [place] [address] Cecy Forbes MA 06/26/2025 Results Follow-Up [facility] Emergency [address] [place] [address] Karen Suarez RN 06/24/2025 5:43 PM EDT - 06/24/2025 8:33 PM EDT Emergency [facility] Emergency [address] [place] [id number] Miki Pearson MD Zaidi, Mansoor Anwer, MD Acute UTI (Primary Dx); Left upper quadrant abdominal pain Discharge Disposition: Home or Self Care 06/02/2025 2:26 PM EDT - 06/02/2025 3:31 PM EDT Emergency [facility] Emergency [address] [place] [id number] Elbow pain, unspecified laterality (Primary Dx); Acute shoulder pain, unspecified laterality Discharge Disposition: Home or Self Care from Last 3 Months Immunizations Immunization Administration Dates Next Due Tdap Tetanus diptheria [...] on file Sexual Orientation Not on file Last Filed Vital Signs Vital Sign Reading Time Taken Comments Blood Pressure 136/84 06/24/2025 7:23 PM EDT Pulse 68 06/24/2025 7:23 PM EDT Temperature 37 C (98.6 F) 06/24/2025 7:23 PM EDT Respiratory Rate 12 06/24/2025 7:23 PM EDT Oxygen Saturation 97% 06/24/2025 7:23 PM EDT Inhaled Oxygen Concentration - - Weight 61.2 kg (135 lb) 06/24/2025 2:07 PM EDT Height 157.5 cm (5' 2 ) 06/24/2025 2:07 PM EDT Body Mass Index 24.69 06/24/2025 2:07 PM EDT Plan of Treatment Upcoming Encounters Date Type Department Care Team (Late st Contact Info) Description 09/02/2025 3:45 PM EST Appointment [facility] CT Scan [address] [place] [address] Health Maintenance Due Date Last Done Comments Breast Cancer Screening 1973 Drug Screen 1973 Naloxone Order 1973 Opioid Substance Agreement 1973 Pain Assessment 1973 Cervical Cancer Screening: P ap Smear 1994 Hepatitis B Vaccines (3 of 3 - 19+ 3-dose series) 09/16/2005 04/19/2005, 03/16/2005 Pneumococcal Vaccine: 50+ Years (2 of 2 - PCV) 06/12/2008 06/12/2007 HIV Screening 08/07/2022 Hepatitis C Screening 08/07/2022 Social Influencers of Health Screening 08/07/2022 RSV Immunization Adult Patients (1 - Risk 50-74 years 1-dose series) 12/04/2023 Zoster Vaccines (1 of 2) 12/04/2023 Depression Screening 09/04/2024 DTaP,Tdap,and Td Vaccines (3 - Td or Tdap) 09/18/2024 09/18/2014, 06/26/2009 COVID-19 Vaccine (1 - 2024-2 6 season) 2025 Influenza Vaccine (#1) 2025 09/18/2014 [...] Procedure Name Priority Date/Time Associated Diagnosis Comments CT ABDOMEN PELVIS W CONTRAST STAT 06/24/2025 6:36 PM EDT APARICIO URINE CULTURE TUBE STAT 06/24/20 4:26 PM EDT URINALYSIS WITH REFLEX MICROSCOPIC AND CULTURE STAT 06/24/2025 4:26 PM EDT URINALYSIS WITH REFLEX MICROSCOPIC AND CULTURE STAT 06/24/2025 4:26 PM EDT CULTURE URINE STAT 06/24/2025 4:26 PM EDT MAGNESIUM STAT 06/24/2025 4:07 PM EDT LACTATE STAT 06/24/2025 4:07 PM EDT LIPASE STAT 06/24/2025 4:07 PM EDT CBC WITH AUTO DIFFERENTIAL STAT 06/24/2025 4:07 PM EDT ACTIVATED PARTIAL THROMBOPLASTIN TIME STAT 06/24/2025 4:07 PM EDT PROTHROMBIN TIME WITH INR STAT 06/24/2025 4:07 PM EDT CBC AND DIFFERENTIAL STAT 06/24/2025 4:07 PM EDT HCG, SERUM, QUALITATIVE STAT 06/24/20 4:07 PM EDT COMPREHENSIVE METABOLIC PANEL STAT 06/24/2025 4:07 PM EDT XR ELBOW 3+ VIEWS LEFT STAT 5 3:02 PM EDT HM COLONOSCOPY Routine 03/08/2022 from Last 3 Months or Most Recently Relevant to Health Maintenance Results * CT Abdomen Pelvis w Contrast (06/24/2025 6:36 PM EDT) Anatomical Region Laterality Modality Body Computed Tomogra phy 06/24/2025 7:15 PM EDT Impressions 06/24/2025 7:15 PM EDT 1. 7 mm cystic structure within the uterus, which could be a small fibroid or a gestational sac. Recommend correlation with beta hCG. 2. No other acute findings within the abdomen or pelvis. 3. Multiple hepatic cysts, some of which have increased in size in comparison to 202. This document has been electronically signed by: Maximo Bowie MD on 06/24/2025 19:15:08 Narrative 06/24/2025 7:15 PM EDT INDICATION: left flank pain, LUQ pain CT abdomen and pelvis with contrast Comparison: US/SR - US ABD LIMITED - 10/29/24 12:[address]/SR - ABDOMEN AND PELVIS C+ CT - 05/12/23 20:07 EDT Findings: No consolidation or effusion. Kidneys, spleen, adrenal glands, pancreas and gallbladder unremarkable. Numerous low-attenuation foci within the liver some of which have increased in comparison to 05/12/2023, which are compatible with cyst attenuation within. No bowel obstruction, pneumoperitoneum, or pneumatosis. Within the uterus, in the right side of the fundus there is a low-attenuation 7 mm rounded structure. Uterus is otherwise unremarkable. Adnexa are normal. Prominent bilateral uterine vessels as noted previously. Normal appendix. Urinary bladder is normal. No ascites. The bones are intact. Procedure Note Maximo Bowie MD - 06/24/2025 INDICATION: left flank pain, LUQ pain CT abdomen and pelvis with contrast Comparison: US/SR - US ABD LIMITED - 10/29/24 12:[address]/SR - ABDOMEN AND PELVIS C+ CT - 05/12/23 20:07 EDT Findings: No consolidation or effusion. Kidneys, spleen, adrenal glands, pancreas and gallbladder unremarkable. Numerous low-attenuation foci within the liver some of which have increased in comparison to 05/12/2023, which are compatible with cyst attenuation within. No bowel obstruction, pneumoperitoneum, or pneumatosis. Within the uterus, in the right side of the fundus there is a low-attenuation 7 mm rounded structure. Uterus is otherwiseunremarkable. Adnexa are normal. Prominent bilateral uterine vessels as notedpreviously. Normal appendix. Urinary bladder is normal. No ascites. The bones are intact. IMPRESSION: 1. 7 mm cystic structure within the uterus, which could be a smallfibroid or a gestational sac. Recommend correlation with beta hCG. 2. No other acute findings within the abdomen or pelvis. 3. Multiple hepatic cysts, some of which have increased in size in comparison to 2022. This document has been electronically signed by: Maximo Bowie MD on 06/24/2025 19:15:08 Miki Pearson MD IM CT PROCEDURES Final Result * (ABNORMAL) Urinalysis with reflex microscopic and culture (06/24/2025 4:26 PM EDT) Specific [place] Urine 1.013 1.003 - 1.030 LAB URINALYSIS - AUTOMATED METHOD 06/24/2025 5:11 PM [facility] pH, Urine 5.5 5.0 - 8.0 pH LAB URINALYSIS - AUTOMATED METHOD 06/24/2025 5:11 PM [facility] Leukocytes, Urine Trace(A) Negative LAB URINALYSIS - AUTOMATED METHOD 06/24/2025 5:11 PM [facility] Nitrite, Urine Negative Negative LAB URINALYSIS - AUTOMATED METHOD 06/24/2025 5:11 PM [facility] Protein, Urine Negative <=Trace mg/dL LAB URINALYSIS - AUTOMATED METHOD 06/24/2025 5:11 PM [facility] Glucose, Urine Negative Negative mg/dL LAB URINALYSIS - AUTOMATED METHOD 06/24/2025 5:11 PM [facility] Ketones, Urine Negative Negative mg/dL LAB URINALYSIS - AUTOMATED METHOD 06/24/2025 5:11 PM [facility] Urobilinogen, Urine 0.2 0.2 - 1.0 mg/dL LAB URINALYSIS - AUTOMATED METHOD 06/24/2025 5:11 PM [facility] Bilirubin, Urine Negative Negative LAB URINALYSIS - AUTOMATED METHOD 06/24/2025 5:11 PM [facility] Blood, Urine Negative Negative LAB URINALYSIS - AUTOMATED METHOD 06/24/2025 5:11 PM [facility] RBC, Urine 2.8 0 - 4 /HPF LAB URINALYSIS - AUTOMATED METHOD 06/24/2025 5:11 PM [facility] WBC, Urine 3.3 0 - 4 /HPF LAB URINALYSIS - AUTOMATED METHOD 06/24/2025 5:11 PM [facility] Squamous Epithelial, Urine 52 0 - 60 /LPF LAB URINALYSIS - AUTOMATED METHOD 06/24/2025 5:11 PM [facility] Bacteria, Urine Many(A) Negative /HPF LAB URINALYSIS - AUTOMATED METHOD 06/24/2025 5:11 PM [facility] Hyaline Casts, Urine 2.8 0 - 3 /LPF LAB URINALYSIS - AUTOMATED METHOD 06/24/2025 5:11 PM [facility] Urine Urine specimen obtained by clean catch procedure / Unknown Non-blood Collection / Unknown 06/24/2025 4:26 PM EDT 06/24/2025 5:01 PM EDT us Mariana SWANSON LAB URINE ORDERABLES Fin al Result [facility] [address] [place] [address], * Aparicio urine culture tube (06/24/2025 4:26 PM EDT) Extra Tube Hold for add-ons. 06/24/2025 7:[address] [facility] Comment:Auto resulted. Urine Urine specimen obtained by clean catch procedure / Unknown Non-blood Collection / Unknown 06/24/2025 4:26 PM EDT 06/24/2025 5:01 PM EDT us Mariana SWANSON LAB URINE ORDERABLES Fin al Result [facility] [address] [place] [address], * (ABNORMAL) Culture urine (06/24/2025 4:26 PM EDT) Culture, Urine >=100,000 CFU/mL Escherichia coli(A) OMEGA 06/26/2025 10:[address] [facility] Comment: This is an edited result. Previous organism was Gram negative bacilli on 06/25/2025 at 1322 EDT. Urine Urine specimen obtained by clean catch procedure / Unknown Non-blood Collection / Unknown 06/24/2025 4:26 PM EDT 06/24/2025 5:11 PM EDT Narrative Organism Antibiotic Method Susceptibility Escherichia coli Amoxicillin/Clavulanate OMEGA 4 ug/ml: Susceptible Escherichia coli Ampicillin/Sulbactam OMEGA <=2 ug/ml: Susceptible Escherichia coli Piperacillin/Tazobactam OMEGA <=4 ug/ml: Susceptible Escherichia coli Cefazolin (Urine) OMEGA 2 ug/ml: Susceptible Escherichia coli Cefoxitin OMEGA <=4 ug/ml: Susceptible Escherichia coli Ceftazidime OMEGA <=0.5 ug/ml: Susceptible Escherichia coli Ceftriaxone OMEGA <=0.25 ug/ml: Susceptible Escherichia coli Cefepime OMEGA <=0.12 ug/ml: Susceptible Escherichia coli Meropenem OMEGA <=0.25 ug/ml: Susceptible Escherichia coli Amikacin OMEGA 4 ug/ml: Susceptible Escherichia coli Gentamicin OMEGA <=1 ug/ml: Susceptible Escherichia coli Ciprofloxacin OMEGA <=0.06 ug/ml: Susceptible Escherichia coli Levofloxacin OMEGA <=0.12 ug/ml: Susceptible Escherichia coli Nitrofurantoin OMEGA <=16 ug/ml: Susceptible Escherichia coli Trimethoprim/Sulfamethoxazole OMEGA <=20 ug/ml: Susceptible us Mariana SWANSON LAB MICROBIOLOGY - GENER AL ORDERABLES Final Result [facility] [address] [place] [address], [place] [phone] * CBC auto differential (06/24/2025 4:07 PM EDT) WBC 9.3 4.8 - 10.8 K/mcL LAB HEMETOLOGY METHOD 06/24/2025 4:[address] [facility] RBC 4.30 3.80 - 4.80 M/mcL LAB HEMETOLOGY METHOD 06/24/2025 4:[address] [facility] Hemoglobin 13.6 11.5 - 16.0 g/dL LAB HEMETOLOGY METHOD 06/24/2025 4:[address] [facility] Hematocrit 40.2 35.0 - 47.0 % LAB HEMETOLOGY METHOD 06/24/2025 4:[address] [facility] MCV 93.1 79.0 - 98.0 FL LAB HEMETOLOGY METHOD 06/24/2025 4:[address] [facility] MCH 31.5 27.0 - 32.0 pcg LAB HEMETOLOGY METHOD 06/24/2025 4:[address] [facility] MCHC 33.8 32.0 - 37.0 g/dL LAB HEMETOLOGY METHOD 06/24/2025 4:[address] [facility] RDW 12.2 11.0 - 15.0 % LAB HEMETOLOGY METHOD 06/24/2025 4:[address] [facility] Platelets 280 130 - 400 K/mcL LAB HEMETOLOGY METHOD 06/24/2025 4:[address] [facility] MPV 9.9 7.0 - 11.0 FL LAB HEMETOLOGY METHOD 06/24/2025 4:[address] [facility] NRBC 0.0 <1.0 % [facility] NR[facility] Absolute 0.00 <0.10 K/mcL LAB HEMETOLOGY METHOD 06/24/2025 4:28 PM [facility] Neutrophils Relative 42.4 % LAB HEMETOLOGY METHOD 06/24/2025 4:28 PM [facility] Lymphocytes Relative 47.1 % LAB HEMETOLOGY METHOD 06/24/2025 4:28 PM [facility] Monocytes Relative 6.8 % LAB HEMETOLOGY METHOD 06/24/2025 4:28 PM [facility] Eosinophils Relative 2.8 % LAB HEMETOLOGY METHOD 06/24/2025 4:28 PM [facility] Basophils Relative 0.6 % LAB HEMETOLOGY METHOD 06/24/2025 4:28 PM [facility] Immature Granulocytes Relative 0.3 % LAB HEMETOLOGY METHOD 06/24/2025 4:28 PM [facility] Neutrophils Absolute 3.92 1.50 - 7.00 K/mcL LAB HEMETOLOGY METHOD 06/24/2025 4:28 PM [facility] Lymphocytes Absolute 4.37 1.00 - 5.00 K/mcL LAB HEMETOLOGY METHOD 06/24/2025 4:28 PM [facility] Monocytes Absolute 0.63 0.20 - 1.00 K/mcL LAB HEMETOLOGY METHOD 06/24/2025 4:28 PM [facility] Eosinophils Absolute 0.26 0.00 - 0.50 K/mcL LAB HEMETOLOGY METHOD 06/24/2025 4:28 PM [facility] Basophils Absolute 0.06 0.00 - 0.20 K/mcL LAB HEMETOLOGY METHOD 06/24/2025 4:[address] [facility] Immature Granulocytes Absolute 0.03 0.00 - 0.03 K/[facility] LAB HEMETOLOGY METHOD 06/24/2025 4:[address] [facility] Blood Venous blood specimen / Unknown Venipuncture / Unknown 06/24/2025 4:07 PM EDT 06/24/2025 4:14 PM EDT us Miki Pearson MD LAB BLOOD ORDERABLES Final Resul t Performing Organization Address City/[facility]/ZIP Co de Phone Number [facility] [address] [place] [address], [place] [phone] * APTT (06/24/2025 4:07 PM EDT) aPTT 29.8 24.1 - 39.3 sec LAB COAGULATION METHOD 06/24/2025 4:[address] [facility] Blood Venous blood specimen / Unknown Venipuncture / Unknown 06/24/2025 4:07 PM EDT 06/24/2025 4:14 PM EDT us Miki Pearson MD LAB BLOOD ORDERABLES Final Resul t Performing Organization Address City/[facility]/ZIP Co de Phone Number [facility] [address] [place] [address], [place] [phone] * Protime-INR (06/24/2025 4:07 PM EDT) Protime 10.9 10.6 - 13.9 sec LAB COAGULATION METHOD 06/24/2025 4:[address] [facility] INR 0.9 LAB COAGULATION METHOD 06/24/2025 4:[address] [facility] Blood Venous blood specimen / Unknown Venipuncture / Unknown 06/24/2025 4:07 PM EDT 06/24/2025 4:14 PM EDT us Miki Pearson MD LAB BLOOD ORDERABLES Final Resul t Performing Organization Address [facility] Co de Phone Number [facility] [address] [place] [address], [place] [phone] * hCG Qualitative (06/24/2025 4:07 PM EDT) [facility] hCG Qual Negative Negative 06/24/2025 4:[address] [facility] Blood Venous blood specimen / Unknown Venipuncture / Unknown 06/24/2025 4:07 PM EDT 06/24/2025 4:14 PM EDT us Miki Pearson MD LAB BLOOD ORDERABLES Final Resul t Performing Organization Address [facility] de Phone Number [facility] [address] [place] [address], [place] [phone] * Magnesium (06/24/2025 4:07 PM EDT) [facility] Magnesium 1.9 1.9 - 2.6 mg/dL LAB CHEMISTRY METHOD 06/24/2025 4:[address] [facility] Blood Venous blood specimen / Unknown Venipuncture / Unknown 06/24/2025 4:07 PM EDT 06/24/2025 4:14 PM EDT us Miki Pearson MD LAB BLOOD ORDERABLES Final Resul t Performing Organization Address City/[facility]/ZIP Co de Phone Number [facility] [address] [place] [address], [place] [phone] * Lipase (06/24/2025 4:07 PM EDT) [facility] Lipase 42 13 - 75 unit/L LAB CHEMISTRY METHOD 06/24/2025 4:[address] [facility] Blood Venous blood specimen / Unknown Venipuncture / Unknown 06/24/2025 4:07 PM EDT 06/24/2025 4:14 PM EDT us Miki Pearson MD LAB BLOOD ORDERABLES Final Resul t Performing Organization Address City/[facility]/ZIP Co de Phone Number [facility] [address] [place] [address], [place] [phone] * Lactate (06/24/2025 4:07 PM EDT) Lactate 1.9 0.4 - 2.0 mmol/L LAB CHEMISTRY METHOD 06/24/2025 4:[address] [facility] Blood Venous blood specimen / Unknown Venipuncture / Unknown 06/24/2025 4:07 PM EDT 06/24/2025 4:14 PM EDT us Miki Pearson MD LAB BLOOD ORDERABLES Final Resul t Performing Organization Address [facility]/ZIP Co de Phone Number [facility] [address] [place] [address], [place] [phone] * (ABNORMAL) Comprehensive Metabolic Panel (CMP) (06/24/2025 4:07 PM EDT) Sodium 138 133 - 145 mmol/L LAB CHEMISTRY METHOD 06/24/2025 6:[address] [facility] Potassium 3.8 3.5 - 5.5 mmol/L LAB CHEMISTRY METHOD 06/24/2025 6:[address] [facility] Chloride 104 96 - 110 mmol/L LAB CHEMISTRY METHOD 06/24/2025 6:[address] [facility] CO2 29 21 - 32 mmol/L LAB CHEMISTRY METHOD 06/24/2025 6:[address] [facility] Anion Gap 5 3 - 11 LAB CHEMISTRY METHOD 06/24/2025 6:03 PM [facility] Glucose 99 70 - 100 mg/dL LAB CHEMISTRY METHOD 06/24/2025 6:03 PM [facility] BUN 11 5 - 25 mg/dL LAB CHEMISTRY METHOD 06/24/2025 6:03 PM [facility] Creatinine 0.65 0.50 - 1.10 mg/dL LAB CHEMISTRY METHOD 06/24/2025 6:03 PM [facility] eGFR 107 >=60 mL/min/1. 73m2 LAB CHEMISTRY METHOD 06/24/2025 6:03 PM [facility] Comment:Calculation based on the Chronic Kidney Disease Epidemiology Collaboration (CKD-EPI) equation refit without adjustment for race. BUN/Creatinine Ratio 16.9 LAB CHEMISTRY METHOD 06/24/2025 6:03 PM [facility] Calcium 9.2 8.5 - 10.5 mg/dL LAB CHEMISTRY METHOD 06/24/2025 6:03 PM [facility] AST (SGOT) 9(L) 10 - 42 unit/L LAB CHEMISTRY METHOD 06/24/2025 6:03 PM [facility] ALT (SGPT) 20 10 - 60 unit/L LAB CHEMISTRY METHOD 06/24/2025 6:03 PM [facility] Alkaline Phosphatase 56 42 - 121 unit/L LAB CHEMISTRY METHOD 06/24/2025 6:03 PM [facility] Total Protein 7.2 6.0 - 8.0 g/dL LAB CHEMISTRY METHOD 06/24/2025 6:03 PM [facility] Albumin 4.2 3.2 - 5.0 g/dL LAB CHEMISTRY METHOD 06/24/2025 6:03 PM [facility] Total Bilirubin 0.2 0.0 - 1.4 mg/dL LAB CHEMISTRY METHOD 06/24/2025 6:03 PM [facility] Blood Venous blood specimen / Unknown Venipuncture / Unknown 06/24/2025 4:07 PM EDT 06/24/2025 4:14 PM EDT Miki Pearson MD LAB BLOOD ORDERABLES Final Resul t [facility] ([facility]) [facility] [address] [place] [address], [place] [phone] * XR Elbow 3+ Views Left (06/02/2025 3:02 PM EDT) Anatomical Region Laterality Modality Upper Extremities, Elbow Left Radiogr aphic Imaging 06/02/2025 3:36 PM EDT Impressions 06/02/2025 3:36 PM EDT FINDINGS/IMPRESSION: No acute fracture or dislocation. No significant effusion. -------- FINAL REPORT -------- Dictated By: Lina Joseph Dictated Date: 06/02/2025 15:36 ET Assigned Physician: Lina Joseph Reviewed and Electronically Signed By: Lina Joseph Signed Date: 06/02/2025 15:36 ET Workstation ID: [id number] Transcribed By: Self Edit Transcribed Date: 06/02/2025 15:36 ET Narrative 06/02/2025 3:36 PM EDT XR ELBOW 3+ VIEWS LEFT INDICATION: pain r/o fx TECHNIQUE: XR ELBOW 3+ VIEWS LEFT COMPARISON: No priors available. Procedure Note Lina Joseph MD - 06/02/2025 XR ELBOW 3+ VIEWS LEFT INDICATION: pain r/o fx TECHNIQUE: XR ELBOW 3+ VIEWS LEFT COMPARISON: No priors available. IMPRESSION: FINDINGS/IMPRESSION: No acute fracture or dislocation. No significanteffusion. -------- FINAL REPORT -------- Dictated By: Lina Joseph Dictated Date: 06/02/2025 15:36 ET Assigned Physician: Lina Joseph Reviewed and Electronically Signed By: Lina Joseph Signed Date: 06/02/2025 15:36 ET Workstation ID: [id number] Transcribed By: Self Edit Transcribed Date: 06/02/2025 15:36 ET Cierra SWANSON IMG XR PROCEDURES Mary l Result * Colonoscopy (03/08/2022) Colonoscopy No Interpretation , Abstracted Anatomical Region Laterality Modality Other Historical Provider MD HEALTH MAINTENANCE Final Result from Last 3 Months or Most Recently Relevant to Health Maintenance Insurance [facility] [employer] [employer]AGE [address] [place] [address] Care Teams Senior Painter Relationship Specialty Start Date End Date Physician, No Pcp PCP - General 04/21/25
== END 2025-08-12 15:57 | disposition home or self-care (01) ==
PROVIDERS: Emergency Provider Emergency Medicine Emergency Medical Services; PCP Nurse Practitioner Family
DX: M54.2 Cervicalgia (principal); G89.29 Other chronic pain; Z76.0 Encounter for issue of repeat prescription
CPT/HCPCS: 99282; 99283